=== PATIENT | female | born 1935 | race Caucasian/White ===

== ENCOUNTER 2024-07-07 12:39 | Outpatient (CLI) | payer MEDICARE, BC, SELFPAY | END 2024-07-07 12:40 | disposition home or self-care (01) | LOC: ANHAUDASC 12:42 | PROVIDERS: PCP Internal Medicine; Visit Provider Otolaryngology | DX: H90.3 Sensorineural hearing loss, bilateral (principal); H61.23 Impacted cerumen, bilateral | CPT/HCPCS: 92557; 92567 ==